=== PATIENT | male | born 1945 | race Caucasian/White ===

== ENCOUNTER 2018-06-22 06:52 | Day surgery (SDC) | payer MEDICARE ==
[~2018-06-22] VITALS: Ht 170.2 cm; Wt 110.2 kg
[~2018-06-22 06:52] MED LIST: AMITRIPTYLINE H50 MG PO; CYCLOBENZAPRINE5 MG PO; GABAPENTIN300 MG PO; HYDROCHLOROTH12.5 MG PO; LOVASTATIN40 MG PO; MELOXICAM7.5 MG PO; MS CONTIN15 MG PO; OMEPRAZOLE20 MG PO; TRAZODONE HCL150 MG PO; VENLAFAXINE HCL75 MG PO; VIAGRA100 MG PO; VITAMIN D32000 UNI1 PO
[2018-06-22] MEDS ORDERED: ASPIR-LOW81 MG PO (07:45)
--- NOTE | 2018-06-22 10:27 | NUR ---
06/22/18 Jovan7 Emma Vergara 1018- PT ARRIVES TO PACU AWAKE. RESP EVEN AND UNLABORED. PT REPORTS NO PAIN, DIZZINESS, OR NAUSEA. OXYGEN SAT MID 90'S ON RA. 1023- PT SITTING UP IN BED DRINKING WATER. PT REPORTS NO PAIN, NAUSEA, OR DIZZINESS.
[2018-06-22] MEDS ORDERED: MAPAP325 MG PO (10:39)
--- NOTE | 2018-06-22 12:01 | CONS ---
[facility] [address] [place], [place] [address] Signed DATE OF CONSULTATION: CONSULTING PHYSICIAN: Ricky Everett MD PROBLEM: Possible temporal arteritis, left side. HISTORY OF PRESENT ILLNESS: This is a 72-year-old white man, has long-standing lumbar back pain and cervical spine pain with radiculopathy, for which he takes chronic opiates for a number of years. He has other chronic pain issues. He has reflux disease, restless legs syndrome, and insomnia. In the past few weeks, he has been having significant and severe left temporal headaches. This occurs where his "vein is", he says. He will have intense temporal pain, which causes a headache and does not cause associated nausea or vomiting or any visual loss. 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 He has rheumatoid disease as well. He is considered to have intermittent chest wall tenderness. He advised the nurse upon his presentation today that he has heavy "chest pain" without exertion on occasion, for which he does not have diaphoresis or other symptoms of similar nature. He has been considered by Dr. Peralta, his primary physician in [place], [place] to have possible temporal arteritis and has been empirically begun on prednisone 80 mg daily, starting yesterday. I was called by Dr. Peralta yesterday to facilitate an urgent temporal artery biopsy. As the patient is 71 miles away from [place], I agreed to see him today, anticipating temporal artery biopsy today under intravenous sedation with local anesthesia if possible. The patient has made the trip over the day with his and is doing reasonably well today. He does not currently have a headache. ALLERGIES: Listed as Cipro, clindamycin, Medrol pack, and penicillin (anaphylaxis). MEDICATIONS: Include aspirin enteric-coated 81 mg, amitriptyline 100 mg daily, venlafaxine 150 mg Electronically Signed By: RICKY EVERETT MD 06/22/18 1201 PATIENT NAME: BOSTON RAMIREZ CONSULTATION DATE OF : 41 REPORT #: [id number] PHYSICIAN: RICKY EVERETT MD PCP: RJ PERALTA MD REPORT IS CONFIDENTIAL AND NOT TO BE RELEASED WITHOUT AUTHORIZATION [facility] [address] [place], [place] [address] Signed daily, cyclobenzaprine 10 mg at bedtime, gabapentin 300 mg daily, Sinemet 25/100 one p.o. at bedtime, trazodone 150 at bedtime, [place] 5/325 one q.6 hours for pain, Prilosec 20 mg daily, vitamin D3 400 unit capsule daily, lovastatin 40 mg daily, morphine 15 mg extended release q.a.m. and 30 mg extended release q.p.m. and prednisone recently started 80 mg daily. Also, he has sublingual nitroglycerin available to him as needed for chest pain. REVIEW OF SYSTEMS: He denies any current chest pain. He has no shortness of breath. He has no current headache. He is already known to be blind in his right eye. No visual changes described in his left eye. PHYSICAL EXAMINATION: GENERAL: This is a plethoric elderly white man, who is alert and oriented, accompanied by his . HEAD: Palpation of his left temporal area shows a minimal pulsation. I did not detect a nodule. NECK: Trachea is midline. He has no carotid bruit that I can tell. CHEST: Clear. HEART: Regular without murmur. ABDOMEN: Markedly obese, but soft. There is no palpable mass, tenderness, or ascites. EXTREMITIES: Show no clubbing or cyanosis. LAB STUDIES: Obtained yesterday in [place], results of which are not available to me at the moment. ASSESSMENT: He does have a possibility of temporal arteritis, for which temporal artery biopsy would be beneficial to arrirm or refute that diagnosis. . Local and IV sedation would be an adequate anesthetic approach for this. An EKG is being obtained at this time. There appears to be no acute electrocardiographic problem. The risks of bleeding, infection, and other unforeseen complications related to temporal artery biopsy were reviewed in detail. He understands and wished to proceed. We will accommodate his issues of travel by performance of the biopsy today. Ricky Everett MD Electronically Signed By: RICKY EVERETT MD 06/22/18 1201 PATIENT NAME: BOSTON RAMIREZ CONSULTATION DATE OF : 41 REPORT #: [id number] PHYSICIAN: RICKY EVERETT MD PCP: RJ PERALTA MD REPORT IS CONFIDENTIAL AND NOT TO BE RELEASED WITHOUT AUTHORIZATION [facility] [address] [place] [address] Signed /EDUINL /[id number] cc: Rj Peralta MD Copies: JR PERALTA MD ~ Electronically Signed By: RICKY EVERETT MD 06/22/18 1201 PATIENT NAME: BOSTON RAMIREZ CONSULTATION DATE OF : 41 REPORT #: [id number] PHYSICIAN: RICKY EVERETT MD PCP: RJ PERALTA MD REPORT IS CONFIDENTIAL AND NOT TO BE RELEASED WITHOUT AUTHORIZATION
--- NOTE | 2018-06-23 11:25 | EKG ---
[facility] [address] [facility] [place], [place] [address] Signed Normal sinus rhythm Left axis deviation Abnormal ECG No previous ECGs available Confirmed by MACHO JOHNSON DO ([id number]) on 06/23/2018 11:25:20 AM Electronically Signed By: MACHO JOHNSON DO 06/23/18 1125 PATIENT NAME: BOSTON RAMIREZ Kris Electrocardiogram DATE OF : 41 PHYSICIAN: MACHO JOHNSON DO REPORT #: [id number] REPORT IS CONFIDENTIAL AND NOT TO BE RELEASED WITHOUT AUTHORIZATION
--- NOTE | 2018-06-24 11:43 | OR ---
[facility] [address] [facility] [place] [address] Signed DATE OF OPERATION: 06/22/2018 SURGEON: Ricky Everett MD PREOPERATIVE DIAGNOSIS: Left temporal headache, possible temporal arteritis. POSTOPERATIVE DIAGNOSIS: Left temporal headache, possible temporal arteritis. PROCEDURE: Left temporal artery biopsy. ANESTHESIA: Local with monitored anesthesia care, Beatriz Escamilla CRNA (ketamine and local anesthetic 1% lidocaine with epinephrine 2 mL). INDICATION: This 72-year-old white man is a patient of Dr. Peralta. He is considered possible to have temporal arteritis based on very severe left temporal headaches and underlying background of rheumatic disease. He has been started empirically on prednisone 80 mg a day yesterday. He is seen by me today in consultation for urgent temporal artery biopsy. Although I would normally see the patient in office and later in the operating room. Given his significant distance of travel of 70 miles, we are accommodating that consideration to see him and if appropriate, perform a left temporal artery biopsy today. The risks of bleeding, infection, and other unforeseen complications were reviewed with him in detail. He understands and wished to proceed. FINDINGS: About one finger anterior to the ear, the palpable artery could be determined. A vertical incision was made and the temporal artery and temporal vein identified. Temporal artery appeared reasonably normal in size. At least 2 cm were excised in total. The proximal portion was doubly ligated to assure hemostasis. The artery prior to final ligation did show pulsatile bleeding confirming its identity as temporal artery rather than vein. A temporal vein was additionally identified and left in situ. DESCRIPTION OF PROCEDURE: The patient was brought to the operating room and placed in a semi-recumbent position, Electronically Signed By: RICKY EVERETT MD 06/24/18 1143 PATIENT NAME: BOSTON RMAIREZ OPERATIVE REPORT DATE OF : 41 REPORT #: [id number] PHYSICIAN: RICKY EVERETT MD PCP: RJ PERALTA MD REPORT IS CONFIDENTIAL AND NOT TO BE RELEASED WITHOUT AUTHORIZATION [facility] [address] [place], [place] [address] Signed head turned somewhat to the right. The left temporal area was prepared with clipping and ultimately a Betadine preparation with a cotton ball in the ear to prevent any passage of Betadine into the ear canal. The area was sterilely draped. Palpation 1 cm anterior to the ear revealed pulsatile findings consistent with temporal artery. A 2 mL of 1% lidocaine with epinephrine was injected locally in a vertical configuration after marking the area. The incision was made with a #15 blade. Dissection was carried through the rather thick dermis using sharp dissection and needlepoint cautery. The underlying fascial layers were with a fine hemostat identifying a blood vessel which initially was suggestive of a vein, but with further dissection, was more likely the artery. A vein was located nearby larger in size and most clearly a vein. The vessel considered likely the temporal artery was dissected free proximally and distally. The distal portion was ligated with 2-0 silk and transected showing the vessel to have pulsatile bleeding, confirming the identity of the temporal artery branch. The base of that vessel was then secured with a hemostat. Specimen transected and passed for pathology. At least 2 cm of the artery was obtained. The origin of the artery was ligated with two separate 2-0 silk sutures. There was good hemostasis. Irrigation was undertaken. The wound was then closed with interrupted 4-0 Vicryl in deep dermal layer and running subcuticular 4-0 Vicryl for the skin. Steri-Strips were applied as was an OpSite dressing. The patient tolerated the procedure well. There were no complications. Ricky Everett MD /EDUINL /[id number] cc: Rj Peralta MD Copies: RJ PERALTA MD ~ Electronically Signed By: RICKY EVERETT MD 06/24/18 1143 PATIENT NAME: BOSTON RAMIREZ OPERATIVE REPORT DATE OF : 41 REPORT #: [id number] PHYSICIAN: RICKY EVERETT MD PCP: RJ PERALTA MD REPORT IS CONFIDENTIAL AND NOT TO BE RELEASED WITHOUT AUTHORIZATION
== END 2018-06-22 18:00 | disposition home or self-care (01) ==
LOC: DS 06:52
PROVIDERS: Surgery
PROC: 03BT0ZX Excision of Left Temporal Artery, Open Approach, Diagnostic (ICD-10-PCS; principal; 2018-06-22 07:30)
DX: R51 Headache (principal); F41.0 Panic disorder [episodic paroxysmal anxiety]; I20.8 Other forms of angina pectoris; F32.9 Major depressive disorder, single episode, unspecified; K21.9 Gastro-esophageal reflux disease without esophagitis; I10 Essential (primary) hypertension; E78.00 Pure hypercholesterolemia, unspecified; K29.70 Gastritis, unspecified, without bleeding; K43.9 Ventral hernia without obstruction or gangrene; Z88.1 Allergy status to other antibiotic agents; Z88.8 Allergy status to other drugs, medicaments and biological substances; Z79.82 Long term (current) use of aspirin; Z79.899 Other long term (current) drug therapy; Z79.1 Long term (current) use of non-steroidal anti-inflammatories (NSAID)
CPT/HCPCS: 00352; 88305; 88313; 93005; 93010; J2250; J2405; J2704; J7120

== ENCOUNTER 2019-02-08 07:10 | Day surgery (SDC) | payer MEDICARE, OTHER ==
[~2019-02-08] VITALS: Ht 170.2 cm; Wt 113.8 kg
[~2019-02-08 07:10] MED LIST changes: +ASPIR-LOW81 MG PO; +MAPAP325 MG PO
--- NOTE | 2019-02-08 10:04 | NUR ---
02/08/19 1004 Emma Vergara 0953- PT ARRIVES TO PACU NONAROUSABLE TO NOXIOUS STIMULI. RESP EVEN AND UNLABORED. OXYGEN SAT LOW 90'S ON 5L VIA NC. 0958- PT ENCOURAGED TO TAKE DEEP BREATHS, PT IS ABLE TO PERFORM THIS IF HE IS KEPT AWAKE. PT FALLS ASLEEP WHEN NOT BEING STIMULATED. 1003- PT SLEEPING AT THIS TIME. OXYGEN SAT LOW 90'S ON 5L VIA NC. PT IS MROE ALERT AND ABLE TO COUGH AND DEEP BREATHE. OXYGEN TITRATED TO 2L VIA NC.
--- NOTE | 2019-02-09 19:06 | OR ---
[facility] [address] [place], [place] [address] Signed DATE OF OPERATION: 02/08/2019 SURGEON: Ricky Everett MD PREOPERATIVE DIAGNOSES: 1. Episodic dysphagia, gastroesophageal reflux symptoms, and known hiatal hernia. 2. Multiple medical problems. POSTOPERATIVE DIAGNOSES: 1. Hiatal hernia without obvious esophagitis. No evidence of Garcia's epithelium. 2. Chronic antral gastritis. 3. Antral lesion, possible pancreatic rest. PROCEDURE: Esophagogastroduodenoscopy with multiple biopsies. ANESTHESIA: Intravenous sedation, propofol infusion; Beatriz Escamilla CRNA. INDICATION: This 73-year-old white man is a patient Dr. Rj Peralta of [place], [place]. He has numerous medical problems and would be considered ASA class 4. He has had longstanding reflux symptoms for greater than 20 years and has been on PPI medication, Prilosec 20 mg daily for quite some time. His symptoms have worsened including epigastric pain and indications of dysphagia, both cervical and midesophageal. He has had no hematemesis. His medication was increased to 40 mg daily, which improves his symptoms, but not entirely. On that basis, he is here to undergo upper endoscopy to better characterize the problem. He understands the risks of bleeding, infection, complications related to anesthesia, and so forth and wished to proceed. FINDINGS: There is no sign of esophageal stricture or neoplasm. He had no Garcia's epithelium. There is only mild minimal chronic esophagitis. Biopsies were taken to assess for eosinophilic esophagitis particularly in the midportion. Stomach itself had significant antral gastritis, but no sign of gastric outlet obstruction. There was a hiatal hernia. The duodenum had mild chronic inflammation. Additionally, there was a small lesion of the antrum, which was suggestive of a pancreatic rest. Biopsies were taken throughout including this lesion. CLOtest was negative. Electronically Signed By: RICKY EVERETT MD 02/09/19 1906 PATIENT NAME: BOSTON RAMIREZ OPERATIVE REPORT DATE OF : 41 REPORT #: [id number] PHYSICIAN: RICKY EVERETT MD PCP: RJ PERALTA MD REPORT IS CONFIDENTIAL AND NOT TO BE RELEASED WITHOUT AUTHORIZATION [facility] [address] [place], [place] [address] Signed DESCRIPTION OF PROCEDURE: The patient was brought to the surgery endoscopy suite, placed in lateral decubitus position, given topical Hurricaine spray hypopharyngeal anesthesia. Under full cardiopulmonary monitoring, he was given intravenous sedation with propofol infusional technique by the testboard operator. A bite block was placed. An Olympus video upper endoscope was passed in the hypopharynx. The vocal cords appeared normal. The scope was advanced into the esophagus, and throughout its length it was quite normal. I was somewhat surprised. The scope was advanced to the stomach, which was insufflated with air. There was some residual bilious food particles, but not much and no clear evidence of dysmotility proper. The antrum was rather inflamed. Pylorus was normal in size without sign of stricture or scarring. Scope was passed through the pylorus into the duodenum, which was normal. Biopsies were taken there to assess for celiac disease. The scope was withdrawn to the antrum. Biopsies taken of that area for both CARLEY and pathologic testing. Retroflexed view was undertaken showing a hiatal hernia. There was no sign of proximal ulceration. There was a small nodular lesion of the antrum, which was suggestive of a pancreatic rest. This was excised. Biopsies were taken of the antrum for both CARLEY and pathologic testing. Scope was withdrawn to the distal esophagus. Close inspection showed no evidence of Garcia's epithelium, stricture, or neoplasm. Biopsies were taken nevertheless. The scope was withdrawn into the mid esophagus, for which biopsies were also obtained. The scope was withdrawn. Re-evaluation of vocal cords showed them to be normal. Scope was removed. The patient was taken to recovery room in good condition. CONCLUDING DIAGNOSIS: His symptoms may be more related to his antral gastritis. Review of his medication shows he takes meloxicam on a daily basis. He does take a small aspirin dose daily as well. If possible, avoidance of his meloxicam may be beneficial. In the meantime, we will add Carafate 1 g p.o. q.i.d. on empty stomach to his regimen of Prilosec 40 mg daily. He will follow up with us in 6 to 8 weeks unless his symptoms have resolved entirely. The patient would be considered a very poor candidate for operative intervention for hiatal hernia and in particular considering, he appears really not to have stricture or neoplasm of the esophagus anyway. Ricky Everett MD Electronically Signed By: RICKY EVERETT MD 02/09/19 1906 PATIENT NAME: BOSTON RAMIREZ OPERATIVE REPORT DATE OF : 41 REPORT #: [id number] PHYSICIAN: RICKY EVERETT MD PCP: RJ PERALTA MD REPORT IS CONFIDENTIAL AND NOT TO BE RELEASED WITHOUT AUTHORIZATION [address] [place] [address] Signed /SAUL /[id number] cc: Rj Peralta MD Copies: RJ PERALTA MD ~ Electronically Signed By: RICKY EVERETT MD 02/09/19 1906 PATIENT NAME: JAMESBOSTON W OPERATIVE REPORT DATE OF : 41 REPORT #: [id number] PHYSICIAN: RICKY EVERETT MD PCP: RJ PERALTA MD REPORT IS CONFIDENTIAL AND NOT TO BE RELEASED WITHOUT AUTHORIZATION
--- NOTE | 2019-02-12 12:56 | PATH ---
[facility] [address] [place], [place] [address] Signed SPECIMEN(S): A DUODENAL BIOPSY SPECIMEN(S): B ANTRUM/ANTRAL BIOPSY SPECIMEN(S): C DISTAL ESOPHAGEAL BIOPSY SPECIMEN(S): D MID ESOPHAGEAL BIOPSY SPECIMEN(S): E MID ESOPHAGEAL BIOPSY SPECIMEN SOURCE: A. DUODENAL BIOPSY B. ANTRUM/ANTRAL BIOPSY C. DISTAL ESOPHAGEAL BIOPSY D. MID ESOPHAGEAL BIOPSY E. MID ESOPHAGEAL BIOPSY CLINICAL HISTORY: Pre: GERD, Garcia's esophagus. Post: Minimal esophagitis, chronic gastritis. MICROSCOPIC DESCRIPTION: A. Histologic sections of all submitted blocks are examined by light microscopy. These findings, together with the gross examination, support the pathologic diagnosis. B. Sections reveal biopsies of gastric mucosa. The epithelial surface shows a focal small surface erosion. The lamina propria is mildly expanded by a population of plasma cells, lymphocytes and infrequent eosinophils. No acute inflammatory cells, goblet cells, Paneth cells or bacteria morphologically consistent with Helicobacter are seen on HE stained sections. There is no evidence of malignancy or atypia. C. Sections submitted as distal esophagus reveal a single biopsy of glandular mucosa histologically consistent with proximal gastric origin and histologically similar to that described above in B. There is mild inactive chronic gastritis. There are no acute inflammatory cells, goblet cells, Paneth cells or bacteria morphologically consistent with Helicobacter seen on HE stained sections. D. Sections reveal biopsies of esophageal mucosa composed of stratified squamous nonkeratinizing epithelium. The basal cell layer is not prominent and rete ridges are not elongated. A few intraepithelial lymphocytes are seen. Intraepithelial eosinophils are not a feature. No glandular mucosa is present. There is no evidence of malignancy or atypia. E. Sections reveal a biopsy of esophageal mucosa histologically similar to that described above in D. There is no evidence of malignancy or atypia. PATIENT NAME: BOSTON RAMIREZ PATHOLOGY DATE OF : 41 REPORT #: [id number] PHYSICIAN: TOMAS PATHOLOGY PCP: NALINI PERALTA MD REPORT IS CONFIDENTIAL AND NOT TO BE RELEASED WITHOUT AUTHORIZATION [facility] [address] [place], [place] [address] Signed LJA:cml FINAL PATHOLOGIC DIAGNOSIS: A. Mucosa, duodenum, biopsy: - Duodenal mucosa with normal villiform architecture, no microscopic pathologic diagnosis. B. Mucosa, antrum, biopsy: - Mild inactive chronic gastritis. - Negative for the presence of bacteria morphologically consistent with Helicobacter on HE stained sections. C. Mucosa, distal esophagus, biopsy: - Glandular mucosa consistent with proximal gastric origin with mild inactive chronic gastritis. - Negative for the presence of bacteria morphologically consistent with Helicobacter on HE stained sections. D. Mucosa, mid esophagus, biopsy: - No microscopic pathologic diagnosis. E. Mucosa, mid esophagus, biopsy: - No microscopic pathologic diagnosis. LJA:cml:C2NR GROSS DESCRIPTION: Five specimens are received in five containers, labeled "ELIZABETH." A. The specimen, labeled "ELIZABETH, duodenal biopsy," is received in formalin and consists of two pink-gaitan soft tissue fragments that measure 0.1-0.2 cm in greatest dimension. The specimen is entirely submitted in cassette (A1). B. The specimen, labeled "ELIZABETH, antrum biopsy," is received in formalin and consists of two pink-gaitan soft tissue fragments that measure 0.1-0.2 cm in greatest dimension. The specimen is entirely submitted in cassette (B1). C. The specimen, labeled "ELIZABETH, distal esophageal biopsy," is received in formalin and consists of one pink-gaitan soft tissue fragment that measures 0.2 cm in greatest dimension. The specimen is entirely submitted in cassette (C1). D. The specimen, labeled "ELIZABETH, mid esophageal biopsy," is received in formalin and consists of four pink-gaitan soft tissue fragments that measure 0.2-0.3 cm in greatest dimension. The specimen is entirely submitted in cassette (D1). E. The specimen, labeled "ELIZABETH, mid esophageal biopsy," is received in formalin and consists of two pink-gaitan soft tissue fragments that measure 0.2-0.3 cm in PATIENT NAME: BOSTON RAMIREZ PATHOLOGY DATE OF : 41 REPORT #: [id number] PHYSICIAN: TOMAS RODRIGUEZ PCP: NALINI PERALTA MD REPORT IS CONFIDENTIAL AND NOT TO BE RELEASED WITHOUT AUTHORIZATION [address] [address] Signed greatest dimension. The specimen is entirely submitted in cassette (E1). JS (under the direct supervision of a pathologist) The Gross Description was prepared using a voice recognition system. The report was reviewed for accuracy; however, sound-alike word errors, addition and/or deletions may occur. If there is any question about this report, please contact Client Services. PERFORMING LABORATORY: The technical component was performed by [email or web address], [address] [place] [id number] (Middle School Spanish Teacher: Nancy De Leon MD; CLIA# [id number]). Professional interpretation was performed by [facility], [facility], [address] [place] [id number] (Middle School Spanish Teacher: lEiu Hoffmann MD; CLIA# [id number]). Diagnostician: Eliu Hoffmann MD Pathologist Electronically Signed 02/12/2019 Copies: ~ PATIENT NAME: BOSTON RAMIREZ PATHOLOGY DATE OF : 41 REPORT #: [id number] PHYSICIAN: [email or web address] [employer] PATHOLOGY PCP: NALINI PERALTA MD REPORT IS CONFIDENTIAL AND NOT TO BE RELEASED WITHOUT AUTHORIZATION
== END 2019-02-08 10:35 | disposition home or self-care (01) ==
LOC: DS 07:10 → OPS 07:10
PROVIDERS: Surgery
PROC: 0DB78ZX Excision of Stomach, Pylorus, Via Natural or Artificial Opening Endoscopic, Diagnostic (ICD-10-PCS; 2019-02-08)
PROC: 0DB38ZX Excision of Lower Esophagus, Via Natural or Artificial Opening Endoscopic, Diagnostic (ICD-10-PCS; 2019-02-08)
PROC: 0DB28ZX Excision of Middle Esophagus, Via Natural or Artificial Opening Endoscopic, Diagnostic (ICD-10-PCS; 2019-02-08)
PROC: 0DB98ZX Excision of Duodenum, Via Natural or Artificial Opening Endoscopic, Diagnostic (ICD-10-PCS; principal; 2019-02-08 08:45)
DX: K29.50 Unspecified chronic gastritis without bleeding (principal); K21.0 Gastro-esophageal reflux disease with esophagitis; H54.61 Unqualified visual loss, right eye, normal vision left eye; I10 Essential (primary) hypertension; F40.240 Claustrophobia; M54.5 Low back pain; M54.2 Cervicalgia; Z88.8 Allergy status to other drugs, medicaments and biological substances; Z88.1 Allergy status to other antibiotic agents; Z79.82 Long term (current) use of aspirin; Z79.899 Other long term (current) drug therapy; Z79.1 Long term (current) use of non-steroidal anti-inflammatories (NSAID)
CPT/HCPCS: J2250; J2704; J3010